=== PATIENT | male | born 1965 | race African-American/Black ===

== ENCOUNTER 2023-05-24 08:24 | Outpatient (REF) | payer BC, SELFPAY ==
--- NOTE | ~2023-05-24 | XR_ITS ---
EXAMINATION: XR KNEE, RIGHT XR KNEE, LEFT XR KNEE AP STANDING CLINICAL INFORMATION: Pain. COMPARISON: None available. TECHNIQUE: Lateral and axial views of the right knee were obtained. Lateral and axial views of the left knee were obtained. AP bilateral standing view of the knees was obtained. FINDINGS: Bony mineralization is normal. The medial joint space compartment of the right knee shows moderately severe narrowing, with peripheral osteophyte formation and subchondral cyst formation. The lateral and patellofemoral joint space compartments are well-maintained. There is a mild varus configuration. No fracture or dislocation is seen. There is a small joint effusion. There is moderate asymmetric narrowing medial joint space compartment of the left knee, and the lateral joint space compartment is well-maintained. The patellofemoral compartment is well-maintained. There is a mild varus configuration. No fracture or dislocation is seen. There is a large joint effusion. XR/XR knee standing BI IMPRESSION: 1. There is moderately severe narrowing of the medial joint space compartment of the right knee. 2. There is moderate narrowing of the medial joint space compartment of the left knee. 2. The bilateral knees show mild varus configurations. 3. A small right knee joint effusion is seen, and there is a large left knee joint effusion.
--- NOTE | ~2023-05-24 | XR_ITS ---
EXAMINATION: XR KNEE, RIGHT XR KNEE, LEFT XR KNEE AP STANDING CLINICAL INFORMATION: Pain. COMPARISON: None available. TECHNIQUE: Lateral and axial views of the right knee were obtained. Lateral and axial views of the left knee were obtained. AP bilateral standing view of the knees was obtained. FINDINGS: Bony mineralization is normal. The medial joint space compartment of the right knee shows moderately severe narrowing, with peripheral osteophyte formation and subchondral cyst formation. The lateral and patellofemoral joint space compartments are well-maintained. There is a mild varus configuration. No fracture or dislocation is seen. There is a small joint effusion. There is moderate asymmetric narrowing medial joint space compartment of the left knee, and the lateral joint space compartment is well-maintained. The patellofemoral compartment is well-maintained. There is a mild varus configuration. No fracture or dislocation is seen. There is a large joint effusion. XR/XR knee LT 2V IMPRESSION: 1. There is moderately severe narrowing of the medial joint space compartment of the right knee. 2. There is moderate narrowing of the medial joint space compartment of the left knee. 2. The bilateral knees show mild varus configurations. 3. A small right knee joint effusion is seen, and there is a large left knee joint effusion.
--- NOTE | ~2023-05-24 | XR_ITS ---
EXAMINATION: XR KNEE, RIGHT XR KNEE, LEFT XR KNEE AP STANDING CLINICAL INFORMATION: Pain. COMPARISON: None available. TECHNIQUE: Lateral and axial views of the right knee were obtained. Lateral and axial views of the left knee were obtained. AP bilateral standing view of the knees was obtained. FINDINGS: Bony mineralization is normal. The medial joint space compartment of the right knee shows moderately severe narrowing, with peripheral osteophyte formation and subchondral cyst formation. The lateral and patellofemoral joint space compartments are well-maintained. There is a mild varus configuration. No fracture or dislocation is seen. There is a small joint effusion. There is moderate asymmetric narrowing medial joint space compartment of the left knee, and the lateral joint space compartment is well-maintained. The patellofemoral compartment is well-maintained. There is a mild varus configuration. No fracture or dislocation is seen. There is a large joint effusion. XR/XR knee RT 2V IMPRESSION: 1. There is moderately severe narrowing of the medial joint space compartment of the right knee. 2. There is moderate narrowing of the medial joint space compartment of the left knee. 2. The bilateral knees show mild varus configurations. 3. A small right knee joint effusion is seen, and there is a large left knee joint effusion.
== END 2023-05-24 08:25 | disposition home or self-care (01) ==
LOC: HO.HOSX 08:24
PROVIDERS: Visit Provider Orthopaedic Surgery
DX: M17.0 Bilateral primary osteoarthritis of knee (principal); M25.461 Effusion, right knee; Z87.39 Personal history of other diseases of the musculoskeletal system and connective tissue
CPT/HCPCS: 20610; 73560; 73565; J0665; J1100

== ENCOUNTER 2023-05-24 09:56 | Outpatient (AMB) | payer BC, SELFPAY ==
--- NOTE | 2023-05-24 10:17 | MHC.OFFVIS ---
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 leftt worse than right. PAtient reports that he hs had ongoing pain for a few months now. Hx of gout w crystals about 10 years ago , this was drained and provided relief. He currently has pain with prolonged walking standing and stairs. 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 He complains of pain with daily activity, worse with prolonged walking, standing, or using stairs. He denies any prior treatment options, and says his pain has been present for several months now. He has a hx of Gout in 2012, which he says resolved when his knee was drained. 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 Review of Systems Const All systems reviewed & are unremarkable except as noted in HPI and below Physical Exam Const General: no acute distress, alert and awake Orientation/consciousness: patient oriented x3 HEENT Head: Yes normocephalic and Yes atraumatic Eyes EOM: EOMs intact bilaterally Resp Effort & Inspection: normal respiratory effort and able to speak in complete sentences Cardio Jugular venous distension: no JVD Skin General skin exam: turgor normal Rashes: no rashes Neuro General: patient oriented x3 Extrem Other: Bilateral Knees: medial compartment ttp bilateral knees 5 deg flexion contracture bilaterally Psych Appearance: grossly normal Affect: normal affect Attitude: cooperative Office Procedures Joint Injection/Drain Joint Injection/Drain Details: Injected 1 mL of Decadron and 3 mL 1% lidocaine and 3 mL of 0.25% Marcaine. Site was prepped using aseptic technique. Patient tolerated the procedure well. Primary Site: right knee Secondary Site: left knee Coding - Large joint - Glenohumeral/Tronchanteric Bursa/Intraarticular Procedure code (CPT) selection complete Results Reviewed Results Reviewed: I personally reviewed relevant radiographs Assessment & Plan Assessment & Plan (1) Osteoarthritis of right knee: Code(s): M17.11 - Unilateral primary osteoarthritis, right knee Plan: This is a 57 year old man with severe bilateral knee OA, R>L, with mild effusion & hx of Gout. He has pain with daily activity, worse with prolonged ambulation, standing, or using stairs. He denies any prior treatment options, and says he can walk ~1 hour before having to stop due to pain. I discussed his diagnosis and treatment options, he may benefit from a TKA in the future. I injected his bilateral knees today, which he tolerated well, and recommend he remain active as tolerated, and be mindful to not push through pain. He will follow up prn. (2) Osteoarthritis of left knee: Code(s): M17.12 - Unilateral primary osteoarthritis, left knee Plan: Injected today. (3) History of gout: Code(s): Z87.39 - Personal history of other diseases of the musculoskeletal system and connective tissue (4) Effusion, right knee: Code(s): M25.461 - Effusion, right knee Plan Scribed for Catalino Woodson MD by Jesus Gusman, chief medical technologist, on 05/24/23 at 10:45 AM, EST. Orders: Orders XR knee RT 2V 05/24/23 M25.569 - Pain in unspecified knee XR knee LT 2V 05/24/23 M25.569 - Pain in unspecified knee XR knee standing BI 05/24/23 M25.569 - Pain in unspecified knee Coding Level of Care Code New Pt Level 3 (42957) Diagnoses Osteoarthritis of right knee M17.11 Osteoarthritis of left knee M17.12 History of gout Z87.39 Effusion, right knee M25.461 CPT Codes Coding - 02681 Large joint: 08462 - Large joint ([id number]) Coding - Joint 7: 88595 - Glenohumeral/Tronchanteric Bursa/Intraarticular ([id number])
== END 2023-05-24 11:08 | disposition home or self-care (01) ==
PROVIDERS: PCP Internal Medicine; Visit Provider Orthopaedic Surgery
DX: M17.0 Bilateral primary osteoarthritis of knee (principal); M25.461 Effusion, right knee; Z87.39 Personal history of other diseases of the musculoskeletal system and connective tissue
CPT/HCPCS: 20610; 99203